=== PATIENT | female | born 1940 | race Caucasian/White ===

== ENCOUNTER 2017-08-11 10:14 | Day surgery (SDC) | payer OTHER ==
[~2017-08-11] VITALS: Ht 157.5 cm; Wt 81.6 kg
[~2017-08-11 10:14] MED LIST: COLACE100 MG PO; DIOVAN HCT 31 TABLE1 PO; FLEET ENEMA-AD118 ML PR; MIRALAX17 GM PO; MOTRIN800 MG PO; NAPROSYN500 MG PO; PERCOCET 5/31 TABLET PO; PRAVACHOL40 MG PO; PROCARDIA XL30 MG PO; SYNTHROID88 MCG PO; TOPROL XL100 MG PO; TYLENOL REGULA325 MG PO; ULTRAM50 MG PO
[2017-08-11 11:34] VITALS: BP 150/70
[2017-08-11 20:31] VITALS: BP 140/78
[2017-08-11 23:37] VITALS: BP 102/55
[2017-08-12 03:30] VITALS: BP 105/72
[2017-08-12 07:10] LABS: HEMATOCRIT 30.2 % (36.0-46.0); MCV 92.9 FL (83-99)
[2017-08-12] MEDS ORDERED: ASPIR-LOW81 MG PO (09:40)
[2017-08-12] MEDS ORDERED: HYDROCODON-ACE1 EAC7 PO (09:40)
[2017-08-12 12:36] VITALS: BP 115/56
== END 2017-08-12 14:06 | disposition home or self-care (01) ==
LOC: SDC 10:14 → 2SOUTH 16:45 → ENRESERV 17:09 → 2EASTP 20:29
PROVIDERS: Orthopaedic Surgery
PROC: 0PSD04Z Reposition Left Humeral Head with Internal Fixation Device, Open Approach (ICD-10-PCS; principal; 2017-08-11)
DX: S42.201A Unspecified fracture of upper end of right humerus, initial encounter for closed fracture (principal); W18.30XA Fall on same level, unspecified, initial encounter; I10 Essential (primary) hypertension; M54.40 Lumbago with sciatica, unspecified side; E03.9 Hypothyroidism, unspecified; R00.1 Bradycardia, unspecified
CPT/HCPCS: 73030; 76000; 85014; 85018; 93005; C1713; C1821; G0378; J0131; J0330; J0690; J2250; J2405; J2765; J2795; J3010; J7030